=== PATIENT | male | born 1960 | race Caucasian/White ===

== ENCOUNTER 2017-02-09 16:41 | Emergency (ER) | payer BC, OTHER ==
[2017-02-09] MEDS ORDERED: ACETAMINOPHEN 325 MG PO ONE (16:55)
[2017-02-09] MEDS ORDERED: SODIUM CHLORIDE 0.9% 1000ML 1,000 ML IV SCH (17:00)
[2017-02-09] MEDS ORDERED: ACETAMINOPHEN 325 MG ONE (17:00)
[2017-02-09 17:02] LABS: BASOPHILS % (AUTO) 1 % (0-3); EOSINOPHILS % (AUTO) 1 % (0-9); HEMATOCRIT 44 % (39-53); MEAN CORPUSCULAR HGB CONC 34.8 gm/dl (32.0-36.0); MEAN CORPUSCULAR VOLUME 84 fL (80-100); MONOCYTES % (AUTO) 6.1 % (0-12); NEUTROPHILS % (AUTO) 73.3 % (37-80)
[2017-02-09 17:06] VITALS: RESP 18
[2017-02-09 17:10] LABS: ALBUMIN 4.1 gm/dl (3.4-5.0); ALT 24 IU/L (14-63); CALCIUM 8.9 mg/dl (8.5-10.1); GLOM FILT RATE 79 mL/min (>60); POTASSIUM 3.6 mMol/L (3.5-5.1); SODIUM 141 mMol/L (136-145)
[2017-02-09 17:15] VITALS: PULSE 77
[2017-02-09 17:46] VITALS: BP 134/93; TEMP 99.1; O2SAT 97
== END 2017-02-09 17:39 | disposition home or self-care (01) | DRG 90 ==
LOC: ED 16:41
DX: S06.0X1A Concussion with loss of consciousness of 30 minutes or less, initial encounter (principal); W55.12XA Struck by horse, initial encounter
CPT/HCPCS: 70450; 80053; 80307; 85025; 96365; 99284; G0390